=== PATIENT | male | born 1970 | race Caucasian/White ===

== ENCOUNTER → 2017-02-11 | Outpatient (CLI) | payer OTHER ==
[~2017-02-11] MED LIST: IBUP200C PO
== END | disposition home or self-care (01) ==
LOC: CARD 14:17
PROVIDERS: ATTEND Family Medicine
DX: J98.4 Other disorders of lung (principal)
CPT/HCPCS: 94060; 94726; 94729

== ENCOUNTER → 2017-04-20 | Outpatient (CLI) | payer OTHER ==
[~2017-04-20] MED LIST changes: -IBUP200C PO; +IBUP200C5 PO
== END | disposition home or self-care (01) ==
LOC: RAD 07:32
PROVIDERS: ATTEND Chiropractor
DX: M25.551 Pain in right hip (principal)

== ENCOUNTER 2017-08-13 10:47 | Emergency (ER) | payer OTHER ==
[~2017-08-13] VITALS: Ht 190.5 cm; Wt 120.2 kg
[2017-08-13 10:48] VITALS: BP 150/107
[2017-08-13 11:22] LABS: BASOPHILS # (AUTO) 0.03 x10^3/uL (0-0.1); BASOPHILS % (AUTO) 0 % (0-1); EOSINOPHILS # (AUTO) 0.12 x10^3/uL (0-0.4); EOSINOPHILS % (AUTO) 1 % (1-7); LYMPHOCYTES # (AUTO) 2.19 x10^3/uL (1-3.4); LYMPHOCYTES % (AUTO) 27 % (22-44); MD NO; MEAN CORPUSCULAR HEMOGLOBIN 29.2 pg (27.5-34.5); MEAN CORPUSCULAR HGB CONC 34.1 g/dL (33.2-36.2); MEAN CORPUSCULAR VOLUME 85.7 fL (81-97); MEAN PLATELET VOLUME 8.3 fL (7.4-10.4); MONOCYTES # (AUTO) 0.53 x10^3/uL (0.2-0.8); MONOCYTES % (AUTO) 6 % (2-9); NEUTROPHILS # (AUTO) 5.36 x10^3/uL (1.8-6.8); NEUTROPHILS % (AUTO) 65 % (42-75); PLATELET COUNT 269 x10^3/uL (130-400); RED BLOOD COUNT 5.25 x10^6/uL (4.38-5.82); RED CELL DISTRIBUTION WIDTH 13.6 % (9.4-14.8)
[2017-08-13 11:33] LABS: ALBUMIN 3.7 g/dL (3.4-5.0); ANION GAP 5 mmol/L (5-15); CALCIUM 8.7 mg/dL (8.5-10.1); CHLORIDE 108 mmol/L (98-107); CREATININE 0.99 mg/dL (0.7-1.3)
== END 2017-08-13 12:33 | disposition home or self-care (01) ==
LOC: ED 12:27
DX: L03.031 Cellulitis of right toe (principal)
CPT/HCPCS: 36415; 80048; 82040; 84550; 85025; 99285

== ENCOUNTER 2018-10-05 16:20 | Emergency (ER) | payer OTHER ==
[~2018-10-05] VITALS: Ht 193 cm; Wt 124.1 kg
[~2018-10-05 16:20] MED LIST changes: +IBUP-1623 PO; -IBUP200C5 PO
[2018-10-05] MEDS ORDERED: ASPIRIN 81 MG TABLET CHEW PO ONE (17:00)
[2018-10-05] MEDS ORDERED: ASPIRIN 81 MG TABLET CHEW ONE (17:01)
--- NOTE | 2018-10-05 17:05 | NUR ---
AMBULATORY TO ROOM FROM LOBBY WITH STEADY GAIT. aSSUMIN CARE OF PT AT THIS TIME.
[2018-10-05 17:13] LABS: BASOPHILS # (AUTO) 0.03 x10^3/uL (0-0.1); BASOPHILS % (AUTO) 0 % (0-1); EOSINOPHILS # (AUTO) 0.21 x10^3/uL (0-0.4); EOSINOPHILS % (AUTO) 2 % (1-7); LYMPHOCYTES # (AUTO) 2.29 x10^3/uL (1-3.4); LYMPHOCYTES % (AUTO) 20 % (22-44); MD NO; MEAN CORPUSCULAR HEMOGLOBIN 30.1 pg (27.5-34.5); MEAN CORPUSCULAR VOLUME 88.4 fL (81-97); MEAN PLATELET VOLUME 8.4 fL (7.4-10.4); MONOCYTES # (AUTO) 0.84 x10^3/uL (0.2-0.8); MONOCYTES % (AUTO) 8 % (2-9); NEUTROPHILS # (AUTO) 7.85 x10^3/uL (1.8-6.8); NEUTROPHILS % (AUTO) 70 % (42-75); PLATELET COUNT 274 x10^3/uL (130-400); RED BLOOD COUNT 5.76 x10^6/uL (4.38-5.82); RED CELL DISTRIBUTION WIDTH 14.7 % (9.4-14.8)
[2018-10-05 17:23] LABS: ALANINE AMINOTRANSFERASE 56 U/L (12-78); ALBUMIN 3.9 g/dL (3.4-5.0); ANION GAP 6 mmol/L (5-15); CALCIUM 8.8 mg/dL (8.5-10.1); CHLORIDE 105 mmol/L (98-107); CREATININE 1.13 mg/dL (0.7-1.3)
[2018-10-05 17:27] LABS: ALKALINE PHOSPHATASE 61 U/L (45-117); BILIRUBIN,TOTAL 0.4 mg/dL (0.2-1.0); TOTAL PROTEIN 8.2 g/dL (6.4-8.2); TROPONIN I < 0.015 ng/mL (0.000-0.045)
--- NOTE | 2018-10-05 17:51 | NUR ---
MD to bedside.
[2018-10-05] MEDS ORDERED: METOPROLOL TARTRATE 25 MG TABLET ONE (18:26)
[2018-10-05] MEDS ORDERED: METOPROLOL TARTRATE 50 MG TABLET PO ONE (18:30)
[2018-10-05 18:35] LABS: FREE T4 (FREE THYROXINE) 0.88 ng/dL (0.76-1.46); THYROID STIMULATING HORMONE 2.48 mIU/L (0.358-3.740)
--- NOTE | 2018-10-05 19:05 | NUR ---
SBAR REPORT TO KEKE HERNANDEZ.
--- NOTE | 2018-10-05 19:08 | NUR ---
REPORT RECEIVED FROM KEKE WING. ASSUMED CARE OF PT. PT CURRENTLY RESTING ON GURNEY. NAD NOTED. SKIN PWD. RESP EVEN AND EQUAL. PT REPORTS CONT YATES. PT AND AT BEDSIDE AWARE THAT WE ARE WAITING FOR LAB/IMAGING RESULTS.
[2018-10-05] MEDS ORDERED: DIPHENHYDRAMINE 50 MG/ML, 1ML ONE (19:15)
[2018-10-05] MEDS ORDERED: METOCLOPRAMIDE 5 MG/ML, 2ML ONE (19:15)
[2018-10-05] MEDS ORDERED: DIPHENHYDRAMINE 50 MG/ML, 1ML IVPush ONE (19:30)
[2018-10-05] MEDS ORDERED: METOCLOPRAMIDE 5 MG/ML, 2ML IVPush ONE (19:30)
--- NOTE | 2018-10-05 20:00 | NUR ---
PT REPORTS YATES IS NOW GONE. PT AO X 4. SKIN PWD. RESP EVEN AND EQUAL. NAD NOTED. AT BEDSIDE. WILL CONT TO MONITOR PT.-
[2018-10-05 20:39] VITALS: BP 133/97
== END 2018-10-05 20:40 | disposition home or self-care (01) ==
LOC: ED 17:51
DX: I10 Essential (primary) hypertension (principal); Z87.891 Personal history of nicotine dependence
CPT/HCPCS: 36415; 70496; 71046; 80053; 83880; 84439; 84443; 84484; 85025; 93005; 96374; 96375; 99284; J1200; J2765

== ENCOUNTER → 2018-10-13 | Outpatient (CLI) | payer OTHER | END | disposition home or self-care (01) | LOC: CARD 08:12 | PROVIDERS: ATTEND Family Medicine | DX: I10 Essential (primary) hypertension (principal) | CPT/HCPCS: 93017 ==

== ENCOUNTER 2020-05-11 03:04 | Emergency (ER) | payer OTHER ==
[~2020-05-11] VITALS: Ht 195.6 cm; Wt 70.0 kg
[2020-05-11 03:14] VITALS: BP 108/68
== END 2020-05-11 04:50 | disposition left against medical advice (07) ==
LOC: ED 03:31
DX: R55 Syncope and collapse (principal); Z53.21 Procedure and treatment not carried out due to patient leaving prior to being seen by health care provider

== ENCOUNTER → 2020-10-09 | Outpatient (CLI) | payer OTHER ==
[~2020-10-09] MED LIST changes: +OMNIPAQUE 350 MG/ML, 100ML BOTTLE ONE
== END | disposition home or self-care (01) ==
LOC: CFH 09:31
PROVIDERS: ATTEND Family Medicine
DX: J32.0 Chronic maxillary sinusitis (principal); J03.90 Acute tonsillitis, unspecified; R22.1 Localized swelling, mass and lump, neck
CPT/HCPCS: 70460; 70491; Q9967